=== PATIENT | male | born 1930 | race African-American/Black ===

== ENCOUNTER 2016-09-26 18:46 | Inpatient (IN) | payer MEDICARE, BC ==
[~2016-09-26] VITALS: Ht 177.8 cm; Wt 80.8 kg
--- NOTE | ~2016-09-26 | CO ---
Unit #: [id number] #: [id number] Patient: JAMIE KRAMER [id number] [address] [place], [place] [address] [id number] MR#: [id number] NAME: JAMIE KRAMER ROOM: 559 Age: 86 Sex: M Admission Date: 09/26/2016 : 1930 Attending Physician: Merrick Urbina M.D. Primary Care Physician: Arnold Morocho M.D. Consultation Date: 09/26/2016 CONSULTATION REPORT REASON FOR CONSULTATION CHF. HISTORY OF PRESENT ILLNESS This is an 86-year-old male known to our group with a prior medical history of valvular heart disease, ischemic cardiomyopathy with an EF of 10-15% per echo in 2009, sick sinus syndrome status post permanent pacemaker placement in 2005, hypertension, hyperlipidemia, and coronary artery disease status post PCI and drug-eluting sent of RCA in 2009. He also has a history of asthma, BPH, chronic kidney disease, and degenerative disc disease. His cardiac cath done August 31, 2009, showed mid RCA 99%, proximal LAD 50% and distal LAD 70% and first obtuse marginal of left circumflex 60%. At that time, he underwent a PCI and drug-eluting stent of his RCA. An echocardiogram in January 2010 showed LVEF 15%, severe mitral regurg, moderate tricuspid regurg, mild AR and MA and moderate pulmonary hypertension with RVSP 40 mmHg. He presented to the ER with increasing dyspnea on exertion, leg edema, and weakness over the last month. He denies angina or chest pains. Denies PND, orthopnea, or dizziness. Chest x-ray in the ER showed cardiomegaly and pulmonary edema. His BNP was elevated at 1297. He denies recent illness with fevers, chills or body aches. He states he has been taking his medications as ordered. PAST MEDICAL HISTORY 1. Valvular heart disease with severe MR, moderate TR, mild AR and MA, moderate pulmonary hypertension with RVSP 40 mmHg per echo January 2010. 2. Ischemic cardiomyopathy with EF 10-15%. 3. Sick sinus syndrome status post permanent pacemaker placement in 2005. 4. Coronary artery disease, status post PCI and drug-eluting stent of RCA in 2009. 5. Cardiac cath 08/31/2009 showed EF 10-15%, mid RCA 99%, proximal LAD 50% and distal LAD 70%, first OM of left circumflex 60%. 6. MS in August 2009. 7. BPH. 8. Asthma. 9. Chronic back pain. 10. Chronic kidney disease. 11. Hyperlipidemia. 12. Hypertension. 13. Chronic renal insufficiency. Unit #: [id number] #: [id number] Patient: JAMIE KRAMER PAST SURGICAL HISTORY 1. Permanent pacemaker in 2005. 2. Cardiac cath in 2009. 3. Right total hip replacement. 4. Cataract extraction. 5. Umbilical hernia repair. FAMILY HISTORY Notes a family history of premature coronary artery disease. SOCIAL HISTORY He lives with his mentally challenged daughter. He denies alcohol or illicit drug use. He is a nonsmoker. ALLERGIES No known drug allergies. HOME MEDICATIONS 1. Coreg 25 mg p.o. twice a day. 2. Lasix 40 mg p.o. daily. 3. Zestril 40 mg p.o. daily. 4. Finasteride 5 mg p.o. daily. 5. Amiodarone 100 mg p.o. daily. 6. Pravastatin 40 mg p.o. daily. REVIEW OF SYSTEMS A ten point review of systems was conducted and is otherwise negative except for what was stated in the HPI. PHYSICAL EXAMINATION VITAL SIGNS: Temp 99.1, heart rate 74, respiratory rate 15, blood pressure 131/69. GENERAL: This is a pleasant 86-year-old -[place] male resting in bed in no acute distress. HEENT: Head is atraumatic and normocephalic. Pupils are equal with bilateral cataracts. Mucous membranes are moist and intact. NECK: Supple. Trachea is midline. LUNGS: Fine rales in both lungs. Nonlabored respirations. HEART: S1, S2. S3 gallop present. Regular rate and rhythm. No murmurs. ABDOMEN: Soft, nontender, nondistended. No ascites. EXTREMITIES: Pulses are palpable. 1+ pedal edema. No cyanosis. NEUROLOGIC: Alert and oriented x3. Moves all extremities equally and follows commands without difficulty. DIAGNOSTIC STUDIES LABORATORY RESULTS: Sodium 138, potassium 3.8, chloride 107, BUN 16, creatinine 1.5, glucose 105, hemoglobin 9.4, hematocrit 27.9, white blood count 8.5, platelets 191. Point of care troponin less than 0.05 and repeat troponin 0.14 and 0.20. BNP 1297. IMAGING RESULTS: Chest x-ray shows pulmonary edema with cardiomegaly. CARDIOVASCULAR: EKG reveals AV paced rhythm with lateral wall ST depression and a left bundle branch block. ASSESSMENT 1. Pulmonary edema secondary to systolic heart failure with an EF of 15%. Unit #: [id number] #: [id number] Patient: JAMIE KRAMER 2. Coronary artery disease, status post PCI and stent to RCA in 2009. 3. Permanent pacemaker. 4. Hypertension. 5. Acute on chronic systolic heart failure. 6. Hyperlipidemia. 7. Valvular heart disease. 8. Chronic kidney disease. PLAN 1. Diurese. 2. Fluid restriction. 3. Strict I and O. 4. Daily weights. 5. Afterload reduction, add hydralazine and Imdur. 6. Decreased beta ada until euvolemic. 7. BP supine and standing. 8. Check labs in a.m. 9. DC nitro paste. Thank you for asking us to see this patient. We appreciate the consult. Dictated by... Leila Mckeon APRN for Jeremiah Colunga M.D. Radha TD: 09/28/2016 08:24 JOB #: [id number] CONSULTATION REPORT Page 1 of 1 X X CONSULTATION REPORT
--- NOTE | ~2016-09-26 | EKG ---
PATIENT: JAMIE KRAMER UNIT #: [id number] Ventricular Rate: 61 BPM Atrial Rate: 61 BPM P-R Interval: 180 ms QRS Duration: 212 ms Q-T Interval: 572 ms QTC Calculation(Bezet): 575 ms P [place]: 14 degrees Calculated R [place]: -68 degrees Calculated T [place]: 112 degrees Diagnosis Line: AV dual-paced rhythm Diagnosis Line: Abnormal ECG Diagnosis Line: When compared with ECG of 27-SEP-2016 05:32, Diagnosis Line: No significant change was found Diagnosis Line: Confirmed by CHRISTA VEGAS MD ([id number]) on Diagnosis Line: 10/08/2016 4:53:48 PM INTERPRETING MD: KADI
--- NOTE | ~2016-09-26 | CR72 ---
[facility] A Service of [facility] RADIOLOGY TEXT RESULTS PATIENT: JAMIE KRAMER LOCATION: [place] [address] : [birth year] UNIT #: [id number] AGE: [address]: MEAGAN NAVAUJ V SEX: M ORDER DR: [id number] [facility] [address] [facility] [facility] [address] [place], [place] [address] [id number] I MR#: [id number] Acc #: [id number] NAME: JAMIE KRAMER : 1930 SEX: M STUDY DATE/TIME: 09/26/2016 19:52 UNIT: [facility] ROOM: [facility] STUDY DESCRIPTION: CR Chest Single View Portable Attending Physician: Lavonne Duong M.D. Ordering Physician: Fredi Dior M.D. Primary Care Physician: Arnold Morocho M.D. MEDICAL IMAGING REPORT This report is preliminary unless electronic signature is present EXAM Portable chest HISTORY Shortness of air, cough and weakness for 1 week. FINDINGS There are moderately extensive diffuse bilateral pulmonary infiltrates, greater in the right mid and upper lung. Considerations include pneumonia or pulmonary edema. Mild cardiac enlargement is accentuated by low lung volumes. Minimal right pleural effusion. Left subclavian pacer leads extend into the right atrium and right ventricle. Dictated by... Kevin Avery M.D. THIS IS AN ELECTRONICALLY VERIFIED REPORT Kevin Avery M.D. at 09/27/2016 11:24 PM FREDIS/lopez TD: 09/27/2016 02:24 JOB #: [id number] MEDICAL IMAGING REPORT Page 1 of 1 COPY
--- NOTE | ~2016-09-26 | CR63 ---
[facility] A Service of [facility] RADIOLOGY TEXT RESULTS PATIENT: JAMIE KRAMER LOCATION: [facility] 559- : [birth year] UNIT #: [id number] AGE: [address]: DOV NAVA V SEX: M ORDER DR: [id number] [place] [id number] [facility]. [place], [place] [address] [id number] I MR#: [id number] Acc #: [id number] NAME: JAMIE KRAMER : 1930 SEX: M STUDY DATE/TIME: 09/29/2016 11:50 UNIT: [facility] ROOM: [facility] STUDY DESCRIPTION: CR Chest 2 View Attending Physician: Dov Nava M.D. Ordering Physician: Jeremiah Colunga M.D. Primary Care Physician: Arnold Morocho M.D. MEDICAL IMAGING REPORT This report is preliminary unless electronic signature is present EXAM 2 views of the chest COMPARISON September 27, 2016, September 26, 2016 and August 19, 2009. INDICATION 86-year-old male with cough, chest congestion and dyspnea for 2 months. Left lower lobe pneumonia. FINDINGS No evidence of pneumothorax. No significant pleural effusion. There are persistent opacities in the right upper lobe and to a lesser extent in the lingula. Overall lingular opacities appearstable and could reflect bronchovascular crowding/atelectasis but the right upper lobe opacities are improved. No significant pleural effusion. Multilead left chest pacemaker device appears stable. Cardiomediastinal silhouette is stable, not well evaluated due to adjacent lung opacities and under-penetration on the frontal view. There are multilevel degenerative changes of the lower cervical spine bilaterally. There appears to be undersurface touching of the humeral heads with the acromion suggesting full-thickness rotator cuff tear bilaterally. IMPRESSION Improving opacity in the right upper lobe suggesting resolving pneumonia. Imaging followup to ensure resolution is recommended. There may also be a lingular component which is unchanged from two days ago. No pleural effusion. Dictated by... Jaquan Carrera M.D. [facility] A Service of [facility] RADIOLOGY TEXT RESULTS PATIENT: JAMIE KRAMER LOCATION: [facility] 559-01 : [birth year] UNIT #: [id number] AGE: [address]: DOV NAVA V SEX: M ORDER DR: THIS IS AN ELECTRONICALLY VERIFIED REPORT Jaquan Carrera M.D. at 10/04/2016 7:01 PM Ag TD: 09/29/2016 16:56 JOB #: [id number] MEDICAL IMAGING REPORT Page 1 of 1 COPY
--- NOTE | ~2016-09-26 | CO ---
Unit #: [id number] #: [id number] Patient: JAMIE KRAMER [id number] [address] [address] [id number] I MR#: [id number] NAME: JAMIE KRAMER ROOM: 559 Age: Sex: M Admission Date: 09/26/2016 : 1930 Attending Physician: Merrick Urbina M.D. Primary Care Physician: Arnold Morocho M.D. Consultation Date: 10/03/2016 CONSULTATION REPORT REASON FOR CONSULT Right hip pain and abnormal x-ray. HISTORY OF PRESENT ILLNESS This is an 86-year-old male, who presented to the hospital with complaints of dyspnea on exertion and diaphoresis. He has a significant heart history with valvular disease, ischemic cardiomyopathy with an ejection fraction of 10% to 15% per an echo in 2009, as well as hypertension, hyperlipidemia, and coronary artery disease. He also has asthma, BPH, chronic kidney disease, and degenerative disk disease. We were consulted for right hip pain that the patient states been present for 2 to 3 months. He underwent a total hip arthroplasty roughly 10 years ago and then fell causing a fracture and then underwent revision and open reduction and internal fixation approximately 5 years ago. The history was taken from the patient which is questionable in its accuracy. He denies any new injury, but does state that over the last several months, his pain has worsened in the right thigh and right hip. He denies any fevers or chills or other signs of infection. The patient is unsure of who performed either of his procedures. PAST MEDICAL HISTORY Significant for valvular heart disease, ischemic cardiomyopathy, sick sinus syndrome, coronary artery disease, myocardial infarction, benign prosthetic hypertrophy, asthma, chronic back pain, chronic kidney disease, hyperlipidemia, hypertension, and chronic renal insufficiency. PAST SURGICAL HISTORY Significant for; 1. Pacemaker. 2. Cardiac cath. 3. Right total hip and revision total hip with ORIF. 4. Cataract extraction. 5. Umbilical hernia. FAMILY HISTORY Significant for coronary artery disease. SOCIAL HISTORY He lives with his daughter who is mentally challenged. He denies any alcohol or illicit drug use and is a nonsmoker. ALLERGIES No known drug allergies. Unit #: [id number] #: [id number] Patient: JAMIE KRAMER HOME MEDICATIONS Include Coreg, Lasix, Zestril, finasteride, amiodarone, pravastatin. REVIEW OF SYSTEMS A full 12-point review of systems was conducted and other than those positive stated in the HPI were negative. PHYSICAL EXAMINATION VITAL SIGNS: He is afebrile. Vital signs were stable. GENERAL: He is a pleasant 86-year-old male, sitting in a chair at bedside. EXTREMITIES: Examination of the right lower extremity reveals a well-healed surgical scar over the posterolateral aspect of his hip. He does have some tenderness to palpation over the anterior and lateral thigh. His hip range of motion is limited especially internal and external rotation, restricted by pain. He has normal knee range of motion. He is able to dorsiflex and plantar flex his foot with full strength compared to his contralateral side. His sensation is intact to light touch throughout the extremity and he has a brisk capillary refill in his toes. DIAGNOSTIC STUDIES IMAGING STUDIES: AP pelvis and AP of the right hip were taken which show implants in place of a revision total hip arthroplasty with components of open reduction and internal fixation. There are multiple broken screws and broken cerclage cables with a plate on the lateral aspect of the femur. It appears that the femoral stem is loose and has subsided significantly. There is some osteolysis around the distal tip of the stem mainly on the medial cortex, but there is also some lucency around the greater trochanter and at the calcar likely from loosening and toggling of the stem. The cup could potentially also be loose with some lucency behind the cup and the cup appears to be vertical without any earlier comparison films to assess this in more depth. ASSESSMENT An 86-year-old male with multiple medical comorbidities, 10 years status post total hip arthroplasty and 5 years status post revision total hip arthroplasty with open reduction and internal fixation of fracture. PLAN 1. No acute intervention at this time from an orthopedic standpoint. 2. Weightbearing as tolerated with a walker. 3. The patient should follow up with his arthroplasty surgeon for further evaluation, but at this time we would recommend nonoperative management and symptom control and potentially physical therapy for ambulation training and strength and range of motion. 4. We did order CRP and sedimentation rate to evaluate for possible infection while he has no current signs of infection and his white blood cell count are normal. We would like to evaluate this just to rule out any source of infection. 5. We will continue to follow while the patient is in-house and are happy to help with coordinating appointment with total joint specialist. Dictated by... Herson Grajeda M.D. for Elissa Perez M.D. [facility]/modl Unit #: [id number] #: [id number] Patient: JAMIE KRAMER TD: 10/03/2016 18:20 JOB #: [id number] CONSULTATION REPORT Page 1 of 1 X X CONSULTATION REPORT
--- NOTE | ~2016-09-26 | CR151 ---
[facility] A Service of [facility] RADIOLOGY TEXT RESULTS PATIENT: JAMIE KRAMER LOCATION: [facility] 559-01 : [birth year] UNIT #: [id number] AGE: [address]: DOV NAVA V SEX: M ORDER DR: [id number] [place] [id number] [facility]. [place], [place] [address] [id number] I MR#: [id number] Acc #: [id number] NAME: JAMIE KRAMER : 1930 SEX: M STUDY DATE/TIME: 10/02/2016 19:26 UNIT: [facility] ROOM: [facility] STUDY DESCRIPTION: CR Hip Min 2 Views Rt Attending Physician: Dov Nava M.D. Ordering Physician: Dov Nava M.D. Primary Care Physician: Arnold Morocho M.D. MEDICAL IMAGING REPORT This report is preliminary unless electronic signature is present EXAM Right hip HISTORY Severe right hip pain since surgery. Pain has been present for the past 5 years. TECHNIQUE 2 views of the hip were obtained. FINDINGS Postoperative changes of open reduction internal fixation are seen in the proximal femur on the right with a right hip prosthesis. There is extensive heterotopic new bone formation and there is subcortical bone loss seen at the greater trochanter with multiple soft tissue calcifications around the hip joint. There is bony erosion also seen around the distal aspect on the femoral stem and there is bone loss seen at the calcar suggesting possible loosening of the prosthesis. No acute fractures are seen. IMPRESSION Previous hip prosthesis with revision. Suggestion of loosening of the femoral stem of the prosthesis. Extensive bony hypertrophy around the hip joint associated with the prosthesis. No acute fractures noted. Dictated by... Fredi Mixon M.D. THIS IS AN ELECTRONICALLY VERIFIED REPORT Fredi Mixon M.D. at 10/04/2016 7:08 AM RLF/claire TD: 10/03/2016 08:50 [facility] A Service of [facility] RADIOLOGY TEXT RESULTS PATIENT: JAMIE KRAMER LOCATION: [facility] 559-01 : [birth year] UNIT #: [id number] AGE: [address]: DOV NAVA V SEX: M ORDER DR: JOB #: [id number] MEDICAL IMAGING REPORT Page 1 of 1 COPY
--- NOTE | ~2016-09-26 | CR63 ---
[facility] A Service of [facility] RADIOLOGY TEXT RESULTS PATIENT: JAMIE KRAMER LOCATION: [facility] 55- : [birth year] UNIT #: [id number] AGE: [address]: DOV NAVA V SEX: M ORDER DR: [id number] [facility] [address] [facility]. [place], [place] [address] [id number] I MR#: [id number] Acc #: [id number] NAME: JAMIE KRAMER : 1930 SEX: M STUDY DATE/TIME: 10/02/2016 8:13 UNIT: [facility] ROOM: [facility] STUDY DESCRIPTION: CR Chest 2 View Attending Physician: Dov Nava M.D. Ordering Physician: Dov Nava M.D. Primary Care Physician: Arnold Morocho M.D. MEDICAL IMAGING REPORT This report is preliminary unless electronic signature is present EXAM PA and lateral chest, 10/02. INDICATION Shortness of air today. COMPARISON 09/29. FINDINGS This PA and lateral view of the chest shows low lung volumes with fairly diffuse interstitial infiltrates most pronounced in the right upper lobe. The findings are stable. Pacemaker stable. right upper lobe. Dictated by... Efrem Modi M.D. THIS IS AN ELECTRONICALLY VERIFIED REPORT Efrem Modi M.D. at 10/02/2016 3:17 PM FEL/bd TD: 10/02/2016 13:53 JOB #: [id number] MEDICAL IMAGING REPORT Page 1 of 1 COPY
--- NOTE | ~2016-09-26 | HP ---
Unit #: [id number] #: [id number] Patient: JAMIE KRAMER 196218 [address] [address] [id number] I MR#: [id number] NAME: JAMIE KRAMER ROOM: 559 Age: 86 Sex: M Admission Date: 09/26/2016 : 1930 Attending Physician: Lavonne Duong M.D. Primary Care Physician: Arnold Morocho M.D. HISTORY AND PHYSICAL CHIEF COMPLAINT Acute respiratory failure. HISTORY This 86-year-old male with cardiomyopathy, CAD, hypertension, chronic kidney disease, is admitted for congestive heart failure. Patient began to experience dyspnea on exertion three days ago associated with diaphoresis. Today she felt extremely short of breath and lightheaded. Notes a nonproductive cough as well. Presented to this emergency department tonight where he was placed on CPAP by EMS. Chest x-ray is most consistent with congestive heart failure although pneumonia cannot be excluded. Initial temperature was 99.2. The patient was treated with aspirin, nitroglycerin, and nitro paste, p.o. Coreg, IV Lasix, Tylenol, Rocephin and Zithromax. Currently is breathing much better off BiPAP, and his O2 saturation is 94% on 3 L of oxygen. The patient also notes increasing new pedal edema, but denies chest pain with the above. PAST MEDICAL HISTORY 1. Permanent pacemaker insertion for high degree AV block. 2. Cardiomyopathy, ejection fraction 10-15%. 3. Cardiac catheterization 08/2009 following an [place] showed 90% stenosis of the RCA which I believe patient may have undergone PCI and stent later at [facility]. He had stenosis of 50% proximal LAD, 70% distal LAD, 60% stenosis of the left marginal branch of circumflex. His ejection fraction was 10-15%. 4. Hypertension. 5. Chronic kidney disease. 6. Hyperlipidemia. 7. Arthritis. 8. BPH. 9. Right total hip replacement. 10. Cataract extraction. 11. Umbilical hernia repair. ALLERGIES No known drug allergies. HOME MEDICATIONS 1. Coreg 25 mg b.i.d. 2. Lasix 40 mg daily. 3. Lisinopril 40 mg daily. 4. Proscar 5 mg daily. Unit #: [id number] #: [id number] Patient: JAMIE KRAMER 5. Amiodarone 100 mg daily. 6. Pravachol 40 mg daily. 7. Tylenol. FAMILY HISTORY Noncontributory given patient's age. SOCIAL HISTORY The patient lives with his daughter. Smoked in his teenage years. Does not drink alcohol. REVIEW OF SYSTEMS Notable for shortness of breath with diaphoresis, lightheadedness, permanent pacemaker, cardiomyopathy, coronary artery disease, hypertension, chronic renal insufficiency, hyperlipidemia, arthritis, above mentioned surgeries. All other systems were reviewed and otherwise negative. PHYSICAL EXAMINATION GENERAL: Pleasant, young appearing 86-year-old male, currently in no acute distress. VITAL SIGNS: Temperature 99.2, pulse 92, respirations 28, blood pressure 157/90. O2 saturation currently is 94% on 3 L of oxygen. HEENT: Eyes PERRLA. Extraocular muscles are intact. Pharynx is benign. NECK: Supple without adenopathy or thyromegaly. Elevated JVD noted. CHEST: Actually fairly clear. CARDIAC: Normal S1 and S2 without S3, S4 or murmur. ABDOMEN: Bowel sounds are present. No hepatosplenomegaly, tenderness or masses. EXTREMITIES: With 2 to 3+ bilateral pedal edema. Pedal pulses are diminished. No ulcers on the feet. NEUROLOGIC EXAM: Patient is awake, alert, oriented. His cranial nerves are intact except that he is hard of hearing. DIAGNOSTIC STUDIES LABORATORY: Admission labs - hematocrit is 30, down from 30.7 two days ago. Normal white count and platelet count. SMA-12 - glucose 154, CO2 20, albumin is 3.1. Lactic acid normal. BNP 13,000. Cardiac markers are negative. Urinalysis - trace protein without significant white or red cells. IMAGING: Chest x-ray shows bilateral opacities consistent with either congestive heart failure versus pneumonia. CARDIOVASCULAR: EKG shows a paced rhythm, rate 84. ASSESSMENT 1. Acute hypoxic respiratory failure, likely secondary to congestive heart failure although community-acquired pneumonia cannot be excluded. 2. Cardiomyopathy with CAD, status post PCI and stent. 3. Permanent pacemaker insertion for AV block. 4. Hypertension. 5. BPH. Unit #: [id number] #: [id number] Patient: JAMIE KRAMER 6. Chronic kidney disease. 7. Slightly macrocytic anemia. Will work up further. PLANS 1. IV Lasix, aspirin, nitro paste. Serial cardiac enzymes and ask cardiology to see. 2. Repeat chest x-ray in the morning. 3. Antibiotics for now pending repeat chest x-ray. Will order Rocephin and doxycycline as patient takes amiodarone. 4. Further workup and consultants depending on above. 5. DVT prophylaxis. Dictated by Noy Emerson/claire TD: 09/27/2016 05:09 JOB #: [id number] HISTORY AND PHYSICAL Page 1 of 1 X Lavonne Duong MD X HISTORY AND PHYSICAL
--- NOTE | ~2016-09-26 | CR63 ---
[facility] A Service of [facility] & [facility] RADIOLOGY TEXT RESULTS PATIENT: JAMIE KRAMER LOCATION: [place] [address] : [birth year] UNIT #: [id number] AGE: [address]: DOV NAVA V SEX: M ORDER DR: [id number] [facility] [address] [facility]. [place], [place] [address] [id number] I MR#: [id number] Acc #: [id number] NAME: JAMIE KRAMER : 1930 SEX: M STUDY DATE/TIME: 10/06/2016 7:42 UNIT: [facility] ROOM: [facility] STUDY DESCRIPTION: CR Chest 2 View Attending Physician: Dov Nava M.D. Ordering Physician: Dov Nava M.D. Primary Care Physician: Arnold Morocho M.D. MEDICAL IMAGING REPORT This report is preliminary unless electronic signature is present EXAM Portable chest HISTORY Congestive cough, fever since 09/26. COMPARISON 10/05/2016 FINDINGS This portable view of the chest again shows very mild interstitial prominence on the left side. There are no focal infiltrates. The dual-lead pacemaker is stable and the heart size is normal. Dictated by... Efrem Modi M.D. THIS IS AN ELECTRONICALLY VERIFIED REPORT Efrem Modi M.D. at 10/08/2016 6:15 AM OSCAR/irvin TD: 10/07/2016 09:47 JOB #: [id number] MEDICAL IMAGING REPORT Page 1 of 1 COPY
--- NOTE | ~2016-09-26 | DS ---
Unit #: [id number] #: [id number] Patient: JAMIE KRAMER [id number] [address] [place], [place] [address] [id number] I MR#: [id number] NAME: JAMIE KRAMER ROOM: 559 Age: 86 Sex: M Admission Date: 09/26/2016 : 1930 Discharge Date: 10/07/2016 Attending Physician: Merrick Urbina M.D. Primary Care Physician: Arnold Morocho M.D. DISCHARGE SUMMARY DISCHARGE DIAGNOSES 1. Acute hypoxic respiratory failure. 2. Acute exacerbation of systolic heart failure with ejection fraction of 10% to 15%. 3. Atrial fibrillation with tachybrady syndrome, now AV paced and in sinus rhythm. 4. Pulmonary edema. 5. Pneumonia. 6. Ischemic cardiomyopathy. 7. 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 HOSPITAL COURSE The patient presented with acute dyspnea and cough associated with diaphoresis and lightheadedness. Initial chest x-ray demonstrated extensive severe diffuse bilateral pulmonary infiltrates right greater than left with right-sided mid and upper lung consolidation. This suggested pulmonary edema and pneumonia. During his admission, the patient was aggressively diuresed with Lasix 40 mg IV twice daily along with Aldactone and Zaroxolyn. The patient's pneumonia was treated with Rocephin and doxycycline. The patient's symptoms improved. The patient's chest x-ray cleared up. The patient's vitals were stable. The patient's breathing improved. During his admission, he did have some right hip and thigh discomfort. X-ray of the right hip demonstrated suggestion of loosening of the femoral stem of the prosthesis. Orthopedics was consulted. The patient underwent joint aspiration that grew no organisms. Orthopedics recommended the patient to follow up with Dr. Stroud in one to two weeks and okay to discharge to long-term care today. DISCHARGE MEDICATIONS 1. Amiodarone 100 mg p.o. once daily. 2. Tylenol 650 mg p.o. q.4 p.r.n. for pain. 3. Lovenox 30 mg subcutaneous once daily. 4. Coreg 12.5 mg p.o. q.12 hourly. 5. Furosemide 40 mg p.o. twice daily. 6. Guaifenesin (Humibid LA) 600 mg p.o. twice daily. 7. Lipitor 10 mg p.o. at bedtime. 8. Lisinopril 10 mg p.o. daily. 9. Finasteride 5 mg p.o. once daily. 10. Florastor 250 mg p.o. twice daily. 11. Aspirin 81 mg p.o. once daily. 12. Spironolactone 12.5 mg p.o. once daily. 13. Isosorbide mononitrate 30 mg p.o. once daily. 14. Hydrocodone 5/325 mg tab one p.o. q.8 p.r.n. for pain. Unit #: [id number] #: [id number] Patient: JAMIE KRAMER DISCHARGE INSTRUCTIONS 1. The patient is to follow up with Dr. Stroud, orthopedist, in one to two weeks. 2. Patient to follow up with Dr. Colunga on December 06 at 1:45 p.m. along with cardiac rehab consult as outpatient. 3. The patient being discharged to a long-term care facility. Dictated by... Noy Ferrera TD: 10/07/2016 11:36 JOB #: [id number] DISCHARGE SUMMARY Page 1 of 1 X X DISCHARGE SUMMARY
--- NOTE | ~2016-09-26 | CR63 ---
[facility] A Service of [facility] RADIOLOGY TEXT RESULTS PATIENT: JAMIE KRAMER LOCATION: [facility] 55 : [birth year] UNIT #: [id number] AGE: [address]: DOV NAVA V SEX: M ORDER DR: [id number] [facility] [address] [facility]. [place], [place] [address] [id number] I MR#: [id number] Acc #: [id number] NAME: JAMIE KRAMER : 1930 SEX: M STUDY DATE/TIME: 09/27/2016 7:14 UNIT: [facility] ROOM: [facility] STUDY DESCRIPTION: CR Chest 2 View Attending Physician: Dov Nava M.D. Ordering Physician: Lavonne Duong M.D. Primary Care Physician: Arnold Morocho M.D. MEDICAL IMAGING REPORT This report is preliminary unless electronic signature is present EXAM Two-view chest 09/27/2016 INDICATIONS 86-year-old male with history of shortness of air and cough for a day. Congestive heart failure, hypertension. Pacemaker placement. COMPARISON Frontal chest was performed and compared with 09/26/2016. FINDINGS Left-sided pacemaker unchanged. Heart is enlarged but stable. Interval worsening of interstitial and alveolar opacities on the right with worsening consolidation in the mid and upper lung zone on the right. Probable trace to small effusions bilaterally. Opacities in the left lung not significantly changed. No pneumothorax. IMPRESSION Worsening appearance of the right lung. Stable appearance of the left lung. Trace to small effusions. No pneumothorax. Dictated by... Deric Mendoza M.D. THIS IS AN ELECTRONICALLY VERIFIED REPORT Deric Mendoza M.D. at 09/27/2016 1:43 PM SAW/kareem TD: 09/27/2016 12:25 JOB #: [id number] MEDICAL IMAGING REPORT [facility] A Service [facility] RADIOLOGY TEXT RESULTS PATIENT: JAMIE KRAMER LOCATION: [facility] [id number] : [birth year] UNIT #: [id number] AGE: [address]: DOV NAVA V SEX: M ORDER DR: Page 1 of 1 COPY
--- NOTE | ~2016-09-26 | DS ---
Unit #: [id number] #: [id number] Patient: JAMIE KRAMER [id number] [address] [place], [place] [address] [id number] I MR#: [id number] NAME: JAMIE KRAMER ROOM: 559 Age: 86 Sex: M Admission Date: 09/26/2016 : 1930 Discharge Date: Attending Physician: Merrick Urbina M.D. Primary Care Physician: Arnold Morocho M.D. DISCHARGE SUMMARY ADDENDED REPORT DISCHARGE DIAGNOSES 1. Acute hypoxic respiratory failure. 2. Acute exacerbation of systolic heart failure with ejection fraction of 10% to 15%. 3. Atrial fibrillation with tachybrady syndrome, now AV paced and in sinus rhythm. 4. Pulmonary edema. 5. Pneumonia. 6. Ischemic cardiomyopathy. 7. 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 HOSPITAL COURSE The patient presented with acute dyspnea and cough associated with diaphoresis and lightheadedness. Initial chest x-ray demonstrated extensive severe diffuse bilateral pulmonary infiltrates right greater than left with right-sided mid and upper lung consolidation. This suggested pulmonary edema and pneumonia. During his admission, the patient was aggressively diuresed with Lasix 40 mg IV twice daily along with Aldactone and Zaroxolyn. The patient's pneumonia was treated with Rocephin and doxycycline. The patient's symptoms improved. The patient's chest x-ray cleared up. The patient's vitals were stable. The patient's breathing improved. During his admission, he did have some right hip and thigh discomfort. X-ray of the right hip demonstrated suggestion of loosening of the femoral stem of the prosthesis. Orthopedics was consulted. The patient underwent joint aspiration that grew no organisms. Orthopedics recommended the patient to follow up with Dr. Stroud in one to two weeks and okay to discharge to long-term care today. DISCHARGE MEDICATIONS 1. Amiodarone 100 mg p.o. once daily. 2. Tylenol 650 mg p.o. q.4 p.r.n. for pain. 3. Lovenox 30 mg subcutaneous once daily. 4. Coreg 12.5 mg p.o. q.12 hourly. 5. Furosemide 40 mg p.o. twice daily. 6. Guaifenesin (Humibid LA) 600 mg p.o. twice daily. 7. Lipitor 10 mg p.o. at bedtime. 8. Lisinopril 10 mg p.o. daily. 9. Finasteride 5 mg p.o. once daily. 10. Florastor 250 mg p.o. twice daily. 11. Aspirin 81 mg p.o. once daily. 12. Spironolactone 12.5 mg p.o. once daily. Unit #: [id number] #: [id number] Patient: JAMIE KRAMER 13. Isosorbide mononitrate 30 mg p.o. once daily. 14. Hydrocodone 5/325 mg tab one p.o. q.8 p.r.n. for pain. DISCHARGE INSTRUCTIONS 1. The patient is to follow up with Dr. Stroud, orthopedist, in one to two weeks. 2. Patient to follow up with Dr. Colunga on December 06 at 1:45 p.m. along with cardiac rehab consult as outpatient. 3. The patient being discharged to a long-term care facility. Dictated by... Noy Ferrera TD: 10/07/2016 11:36 JOB #: [id number] ADDENDUM Lisinopril dose was reduced to 2.5 mg p.o. once daily. Dictated by... Noy Ferrera TD: 10/07/2016 13:17 JOB #: [id number] CC: Linda/perla Please Delete DISCHARGE SUMMARY Page 1 of 1 X X DISCHARGE SUMMARY
--- NOTE | ~2016-09-26 | EKG ---
PATIENT: JAMIE KRAMER UNIT #: [id number] Ventricular Rate: 84 BPM Atrial Rate: 84 BPM P-R Interval: 144 ms QRS Duration: 182 ms Q-T Interval: 468 ms QTC Calculation(Bezet): 553 ms P [place]: 33 degrees Calculated R [place]: -60 degrees Calculated T [place]: 115 degrees Diagnosis Line: Atrial-sensed ventricular-paced rhythm Diagnosis Line: Possible Left atrial enlargement Diagnosis Line: Abnormal ECG Diagnosis Line: When compared with ECG of 29-AUG-2009 19:27, Diagnosis Line: No significant change was found Diagnosis Line: Confirmed by CHRISTA VEGAS MD ([id number]) on Diagnosis Line: 09/26/2016 10:54:01 PM INTERPRETING MD: KADI
--- NOTE | ~2016-09-26 | EKG ---
PATIENT: JAMIE KRAMER UNIT #: [id number] Ventricular Rate: 75 BPM Atrial Rate: 75 BPM P-R Interval: 134 ms QRS Duration: 164 ms Q-T Interval: 500 ms QTC Calculation(Bezet): 558 ms P [place]: 10 degrees Calculated R [place]: -175 degrees Calculated T [place]: -92 degrees Diagnosis Line: Demand pacemaker; interpretation is based on Diagnosis Line: intrinsic rhythm Diagnosis Line: Sinus rhythm with Fusion complexes Diagnosis Line: Non-specific intra-ventricular conduction block Diagnosis Line: Abnormal ECG Diagnosis Line: When compared with ECG of 26-SEP-2016 19:17, Diagnosis Line: No significant change was found Diagnosis Line: Confirmed by NADINE JONES, CECILY ([id number]) on 09/27/2016 Diagnosis Line: 6:51:26 PM INTERPRETING MD: NADINE JONES
--- NOTE | ~2016-09-26 | XA30 ---
[facility] A Service of [facility] & [facility] RADIOLOGY TEXT RESULTS PATIENT: JAMIE KRAMER LOCATION: [facility] 559-01 : [birth year] UNIT #: [id number] AGE: [address]: DOV NAVA V SEX: M ORDER DR: [id number] [facility] [address] [facility] [facility] [address] [place], [place] [address] [id number] I MR#: [id number] Acc #: [id number] NAME: JAMIE KRAMER : 1930 SEX: M STUDY DATE/TIME: 10/04/2016 14:41 UNIT: [facility] ROOM: [facility] STUDY DESCRIPTION: XA Arthrocentesis Major Joint Attending Physician: Dov Nava M.D. Ordering Physician: Elissa Perez M.D. Primary Care Physician: Arnold Morocho M.D. MEDICAL IMAGING REPORT This report is preliminary unless electronic signature is present EXAM Right hip arthrocentesis, 10/04/2016. HISTORY Right hip pain. History of hip replacement. PROCEDURE Informed consent was obtained. A skin site was selected with fluoroscopic guidance and marked, sterilely prepped and draped, and locally anesthetized. A 20-gauge spinal needle was advanced into the joint under fluoroscopic guidance under standard sterile technique. In addition to fluoroscopic confirmation of interarticular needle tip position, tactile confirmation was also received with a distinctive metal on metal tactile return. No fluid could be aspirated so 1-2 mL of non-bacteriostatic sterile saline was injected and withdrawn as possible and sent for microbiologic evaluation. There were no complications. IMPRESSION 1. Technically successful arthrocentesis, no fluid could be aspirated. Tiny amount of non-bacteriostatic sterile saline was injected and withdrawal attempted and the resulting material was sent for microbiologic evaluation. 2. Single fluoroscopic spot image, 0.2 minutes of fluoroscopy. Dictated by... Indra Villalobos M.D. THIS IS AN ELECTRONICALLY VERIFIED REPORT Indra Villalobos M.D. at 10/08/2016 9:04 AM TEV/leilaw [facility] A Service of [facility] & [facility] RADIOLOGY TEXT RESULTS PATIENT: JAMIE KRAMER LOCATION: [facility] 559-01 : [birth year] UNIT #: [id number] AGE: [address]: DOV NAVA V SEX: M ORDER DR: TD: 10/05/2016 16:35 JOB #: [id number] MEDICAL IMAGING REPORT Page 1 of 1 COPY
--- NOTE | ~2016-09-26 | CR63 ---
[facility] A Service of [facility] RADIOLOGY TEXT RESULTS PATIENT: JAMIE KRAMER LOCATION: [facility] [address] : [birth year] UNIT #: [id number] AGE: [address]: DOV NAVA V SEX: M ORDER DR: [id number] [facility] [address] [facility]. [place], [place] [address] [id number] I MR#: [id number] Acc #: [id number] NAME: JAMIE KRAMER : 1930 SEX: M STUDY DATE/TIME: 10/05/2016 UNIT: [facility] ROOM: [facility] STUDY DESCRIPTION: CR Chest 2 View Attending Physician: Dov Nava M.D. Ordering Physician: Dov Nava M.D. Primary Care Physician: Arnold Morocho M.D. MEDICAL IMAGING REPORT This report is preliminary unless electronic signature is present EXAM Chest 2 views 10/05/2016 0729 hours HISTORY Cough, congestion, fever, pain in the legs. Symptoms began 09/26/2016. COMPARISON 10/02/2016. FINDINGS Upright PA and lateral views of the chest demonstrate [id number] cardiomegaly, tortuous aorta and pacer device unchanged. Lung volumes are improved with marked interval decrease in bilateral mixed interstitial and airspace changes. There is some perihilar interstitial change remaining. No effusions seen. IMPRESSION 1. Stable cardiomegaly, tortuous aorta and pacer device. 2. Improved lung volumes with significant improvement in bilateral parenchymal changes in the lungs. There is very mild residual perihilar interstitial prominence, favoring a mild residual edema. There is no pleural effusion or pneumothorax. Dictated by... Fernanda Stoddard M.D. THIS IS AN ELECTRONICALLY VERIFIED REPORT Fernanda Stoddard M.D. at 10/06/2016 12:31 PM Philip TD: 10/05/2016 18:07 JOB #: [id number] [facility] A Service of [facility] RADIOLOGY TEXT RESULTS PATIENT: JAMIE KRAMER LOCATION: [facility] 559-01 : [birth year] UNIT #: [id number] AGE: [address]: DOV NAVA V SEX: M ORDER DR: MEDICAL IMAGING REPORT Page 1 of 1 COPY
[~2016-09-26 18:46] MED LIST: AVODART0.5 MG PO; CIPRO; COREG; DICLOFENAC PO; FLEXERIL10 M1 PO; HCTZ; KCL PO; LORTAB 5/500 TA1 TA1 PO; NAPROXEN; NORVASC; PROSCAR5 MG; ULTRAM; ZETIA
[2016-09-26 19:45] LABS: BASOPHIL# 0.1 X10e3 (0-0.3); BASOPHIL% 0.7 % (0-2.5); DIFF IND NO; EOSINOPHIL# 0.5 X10e3 (0-0.7); EOSINOPHIL% 4.7 % (0.0-7.0); HEMOGLOBIN 9.8 gm/dL (13.0-16.0); LYMPHOCYTE# 1.1 X10e3 (1.0-3.5); LYMPHOCYTE% 10.4 % (17.0-45.0); MEAN CELL VOLUME 97.4 FL (83-96); MEAN CORPUSCULAR HEMOGLOBIN 31.9 PG (28-34); MEAN CORPUSCULAR HGB CONC 32.7 g/dL (30-36); MONOCYTE# 1.3 X10e3 (0-1.0); MONOCYTE% 12.3 % (3.0-12.0); NEUTROPHIL# 7.5 X10e3 (1.5-7.1); NEUTROPHIL% 71.9 % (40-75); PLATELET COUNT 194 X10e3 (140-420); RED BLOOD COUNT 3.08 X10e (3.90-5.60); RED CELL DISTRIBUTION WIDTH 14.1 % (11.0-15.5); WHITE BLOOD COUNT 10.4 X10e3 (4.0-10.5)
[2016-09-26 19:56] LABS: POC - CKMB 1.9 ng/mL (0.0-7.9); POC - TROPONIN <0.05 ng/mL (<=0.05)
[2016-09-26 20:04] LABS: URINE SOURCE CLEAN CATCH
[2016-09-26 20:04] LABS: ALBUMIN SERUM 3.1 g/dL (3.5-5.0); BILIRUBIN, DIRECT 0.2 mg/dL (0.0-0.2); BILIRUBIN,INDIRECT 0.8 mg/dL (0.0-0.9); BUN/CREATININE RATIO 12.14; CALCIUM SERUM 8.9 mg/dL (8.4-10.2); CREATININE SERUM 1.4 mg/dL (0.6-1.4); GLOM FILT RATE Estimated 51.6 mL/min (>60); POTASSIUM 3.9 mmol/L (3.5-5.1); PROTEIN TOTAL SERUM 7.2 g/dL (6.0-8.3)
[2016-09-26 20:08] LABS: URINE APPEARANCE CLEAR; URINE BILIRUBIN NEG (NEG); URINE BLOOD NEG (NEG); URINE COLOR YELLOW; URINE GLUCOSE NEG (NEG); URINE KETONE NEG (NEG); URINE LEUKOCYTE ESTERASE NEG (NEG); URINE NITRATE NEG (NEG); URINE PH 6.5 (5-8); URINE PROTEIN TRACE (NEG); URINE SPECIFIC GRAVITY 1.009 (1.003-1.035); URINE UROBILINOGEN 0.2 MG/DL (NEG)
[2016-09-26 20:11] LABS: CULTURE INDICATED? NO
[2016-09-26 21:23] LABS: POC - TROPONIN <0.05 ng/mL (<=0.05)
[2016-09-26] MEDS ORDERED: CARVEDILOL25 MG PO (22:52)
[2016-09-26] MEDS ORDERED: LASIX PO (22:53)
[2016-09-26] MEDS ORDERED: FINASTERIDE5 MG PO (22:53)
[2016-09-26] MEDS ORDERED: ZESTRIL40 MG PO (22:53)
[2016-09-26] MEDS ORDERED: AMIODARONE HCL100 MG PO (22:54)
[2016-09-26] MEDS ORDERED: PRAVASTATIN SOD40 MG PO (22:55)
[2016-09-27 06:47] LABS: BASOPHIL% 0.6 % (0-2.5); DIFF IND NO; EOSINOPHIL# 0.6 X10e3 (0-0.7); EOSINOPHIL% 6.9 % (0.0-7.0); HEMATOCRIT 27.9 % (38.0-50.0); HEMOGLOBIN 9.4 gm/dL (13.0-16.0); LYMPHOCYTE# 1.4 X10e3 (1.0-3.5); LYMPHOCYTE% 16.4 % (17.0-45.0); MEAN CELL VOLUME 96.5 FL (83-96); MEAN CORPUSCULAR HEMOGLOBIN 32.6 PG (28-34); MEAN CORPUSCULAR HGB CONC 33.8 g/dL (30-36); MONOCYTE# 1.3 X10e3 (0-1.0); MONOCYTE% 15.6 % (3.0-12.0); NEUTROPHIL# 5.2 X10e3 (1.5-7.1); NEUTROPHIL% 60.5 % (40-75); PLATELET COUNT 191 X10e3 (140-420); RED BLOOD COUNT 2.89 X10e (3.90-5.60); RED CELL DISTRIBUTION WIDTH 14.1 % (11.0-15.5); RETICULOCYTE 1.2 % (0.5-2.8); WHITE BLOOD COUNT 8.5 X10e3 (4.0-10.5)
[2016-09-27 07:18] LABS: %MB 2.5 % (0.0-4.0); MB 2.5 ng/ml
[2016-09-27 07:31] LABS: FERRITIN 145 ng/mL (24-336)
[2016-09-27 07:35] LABS: FOLATE (FOLIC ACID) >23.3 ng/mL (>5.8)
[2016-09-27 07:42] LABS: BUN/CREATININE RATIO 10.66; CALCIUM SERUM 8.9 mg/dL (8.4-10.2); CREATININE SERUM 1.5 mg/dL (0.6-1.4); GLOM FILT RATE Estimated 47.5 mL/min (>60); POTASSIUM 3.8 mmol/L (3.5-5.1)
[2016-09-27 12:25] LABS: %MB 2.7 % (0.0-4.0); MB 2.7 ng/ml
[2016-09-28 06:47] LABS: BUN/CREATININE RATIO 12.5; CALCIUM SERUM 8.7 mg/dL (8.4-10.2); CREATININE SERUM 1.6 mg/dL (0.6-1.4); POTASSIUM 3.8 mmol/L (3.5-5.1)
[2016-09-29 07:27] LABS: BUN/CREATININE RATIO 11.11; CALCIUM SERUM 8.9 mg/dL (8.4-10.2); CREATININE SERUM 1.8 mg/dL (0.6-1.4); GLOM FILT RATE Estimated 38.1 mL/min (>60)
[2016-09-29 07:51] LABS: HEMATOCRIT 30.6 % (38.0-50.0); HEMOGLOBIN 10.4 gm/dL (13.0-16.0); MEAN CELL VOLUME 95.7 FL (83-96); MEAN CORPUSCULAR HEMOGLOBIN 32.6 PG (28-34); MEAN CORPUSCULAR HGB CONC 34.1 g/dL (30-36); MEAN PLATELET VOLUME 9.1 FL (6.5-11.5); RED BLOOD COUNT 3.2 X10e (3.90-5.60); RED CELL DISTRIBUTION WIDTH 14.1 % (11.0-15.5); WHITE BLOOD COUNT 8.9 X10e3 (4.0-10.5)
[2016-09-29 20:00] LABS: URINE APPEARANCE CLEAR; URINE BILIRUBIN NEG (NEG); URINE BLOOD NEG (NEG); URINE COLOR YELLOW; URINE GLUCOSE NEG (NEG); URINE KETONE NEG (NEG); URINE LEUKOCYTE ESTERASE NEG (NEG); URINE NITRATE NEG (NEG); URINE PH 5.5 (5-8); URINE PROTEIN NEG (NEG); URINE SPECIFIC GRAVITY 1.011 (1.003-1.035); URINE UROBILINOGEN 0.2 MG/DL (NEG)
[2016-09-29 20:05] LABS: CULTURE INDICATED? NO
[2016-09-30 05:53] LABS: HEMATOCRIT 30.5 % (38.0-50.0); HEMOGLOBIN 10.2 gm/dL (13.0-16.0); MEAN CELL VOLUME 96.1 FL (83-96); MEAN CORPUSCULAR HEMOGLOBIN 32.1 PG (28-34); MEAN CORPUSCULAR HGB CONC 33.4 g/dL (30-36); MEAN PLATELET VOLUME 8.5 FL (6.5-11.5); RED BLOOD COUNT 3.17 X10e (3.90-5.60); RED CELL DISTRIBUTION WIDTH 14.3 % (11.0-15.5); WHITE BLOOD COUNT 9.2 X10e3 (4.0-10.5)
[2016-09-30 07:11] LABS: BUN/CREATININE RATIO 13.88; CREATININE SERUM 1.8 mg/dL (0.6-1.4); GLOM FILT RATE Estimated 38.1 mL/min (>60); POTASSIUM 4.1 mmol/L (3.5-5.1)
[2016-10-01 07:47] LABS: HEMATOCRIT 31.2 % (38.0-50.0); HEMOGLOBIN 10.6 gm/dL (13.0-16.0); MEAN CELL VOLUME 95.8 FL (83-96); MEAN CORPUSCULAR HEMOGLOBIN 32.4 PG (28-34); MEAN CORPUSCULAR HGB CONC 33.8 g/dL (30-36); MEAN PLATELET VOLUME 8.1 FL (6.5-11.5); RED BLOOD COUNT 3.26 X10e (3.90-5.60); RED CELL DISTRIBUTION WIDTH 14.1 % (11.0-15.5); WHITE BLOOD COUNT 7.6 X10e3 (4.0-10.5)
[2016-10-01 08:25] LABS: CREATININE SERUM 1.5 mg/dL (0.6-1.4); GLOM FILT RATE Estimated 47.5 mL/min (>60); MAGNESIUM 2.2 mg/dL (1.6-3.0); POTASSIUM 4.1 mmol/L (3.5-5.1)
[2016-10-02 06:33] LABS: HEMATOCRIT 32.8 % (38.0-50.0); MEAN CELL VOLUME 95.4 FL (83-96); MEAN CORPUSCULAR HGB CONC 33.5 g/dL (30-36); MEAN PLATELET VOLUME 8.2 FL (6.5-11.5); RED BLOOD COUNT 3.44 X10e (3.90-5.60); RED CELL DISTRIBUTION WIDTH 13.8 % (11.0-15.5); WHITE BLOOD COUNT 8.2 X10e3 (4.0-10.5)
[2016-10-02 07:08] LABS: BUN/CREATININE RATIO 14.7; CALCIUM SERUM 8.9 mg/dL (8.4-10.2); CREATININE SERUM 1.7 mg/dL (0.6-1.4); GLOM FILT RATE Estimated 40.8 mL/min (>60); POTASSIUM 4.5 mmol/L (3.5-5.1)
[2016-10-03 06:38] LABS: BUN/CREATININE RATIO 16.25; CALCIUM SERUM 9.2 mg/dL (8.4-10.2); CREATININE SERUM 1.6 mg/dL (0.6-1.4); POTASSIUM 4.8 mmol/L (3.5-5.1)
[2016-10-06 17:48] LABS: %MB 2.1 % (0.0-4.0); MB 1.9 ng/ml
== END 2016-10-07 14:02 | DRG 291 ==
LOC: CED 18:46 → CEDOF 22:46 → C5B 23:30 → CEDOF 23:30 → C5B 09-27 00:07 → CEDOF 09-27 00:07 → C5B 09-27 00:07
PROVIDERS: Emergency Medicine; Family Medicine; Internal Medicine; Internal Medicine Cardiovascular Disease
PROC: B246ZZZ Ultrasonography of Right and Left Heart (ICD-10-PCS; 2016-09-28)
PROC: 0S993ZZ Drainage of Right Hip Joint, Percutaneous Approach (ICD-10-PCS; principal; 2016-10-04)
DX: I13.0 Hypertensive heart and chronic kidney disease with heart failure and stage 1 through stage 4 chronic kidney disease, or unspecified chronic kidney disease (principal); I50.23 Acute on chronic systolic (congestive) heart failure; J96.01 Acute respiratory failure with hypoxia; J18.9 Pneumonia, unspecified organism; Q21.1 Atrial septal defect; N18.9 Chronic kidney disease, unspecified; I25.5 Ischemic cardiomyopathy; I25.10 Atherosclerotic heart disease of native coronary artery without angina pectoris; I25.2 Old myocardial infarction; N40.0 Benign prostatic hyperplasia without lower urinary tract symptoms; Z96.641 Presence of right artificial hip joint; Z98.49 Cataract extraction status, unspecified eye; Z82.49 Family history of ischemic heart disease and other diseases of the circulatory system; I48.91 Unspecified atrial fibrillation; H40.9 Unspecified glaucoma; Z87.891 Personal history of nicotine dependence; Z95.0 Presence of cardiac pacemaker
CPT/HCPCS: 36415; 71010; 71020; 73502; 77002; 80048; 80061; 80076; 81003; 82274; 82550; 82553; 82607; 82728; 82746; 83540; 83550; 83605; 83735; 83880; 84132; 84484; 85025; 85027; 85044; 85652; 86140; 87040; 87070; 87075; 87205; 93005; 93306; 94660; 94760; 96374; 97110; 97116; 97162; 97166; 97530; 99285; G8978-GP; G8979-GP; G8987-GO; G8988-GO; J0456; J0696; J1650; J1940